=== PATIENT | female | born 1975 | race Caucasian/White ===

== ENCOUNTER 2016-09-10 14:13 | Emergency (ER) | payer OTHER ==
[~2016-09-10] VITALS: Ht 157.5 cm; Wt 83.2 kg
[~2016-09-10 14:13] MED LIST: ASCO500 PO; DSS100 PO; FERS325 PO; IBUP-2070 PO; PERCT PO; PREN-114 PO
[2016-09-10] MEDS ORDERED: DIME50TA23 PO (14:42)
[2016-09-10] MEDS ORDERED: DIAZEPAM 5 MG TABLET PO ONE (15:15)
[2016-09-10] MEDS ORDERED: ONDANSETRON HCL 4 MG/2 ML VIAL IVP ONE (15:30)
[2016-09-10 15:37] LABS: BASOPHILS % (AUTO) 0.3 % (0.0-2.0); EOSINOPHILS % (AUTO) 1.3 % (1.0-6.0); HEMATOCRIT 36.2 % (36-46); HEMOGLOBIN 11.6 g/dL (12.0-16.0); LYMPHOCYTES # (AUTO) 3.1 K/uL (1.0-4.8); LYMPHOCYTES % (AUTO) 26.4 % (22.0-44.0); MEAN CORPUSCULAR HGB CONC 32.1 G/dL (31.0-37.0); MEAN CORPUSCULAR VOLUME 84 fL (80-100); MONOCYTES # (AUTO) 0.7 K/uL (0.1-1.0); MONOCYTES % (AUTO) 6.3 % (2.0-9.0); NEUTROPHILS # (AUTO) 7.6 K/uL (1.8-7.7); NEUTROPHILS % (AUTO) 65.7 % (40.0-70.0); PLATELET COUNT (AUTO) 317 K/uL (150-450); RED CELL DISTRIBUTION WIDTH 14.6 % (11.5-14.5); WHITE BLOOD COUNT (AUTO) 11.6 K/uL (4.5-11.0)
[2016-09-10 15:44] LABS: ANION GAP 13 mmol/L (8-16); CARBON DIOXIDE 24 mmol/L (22-29); CHLORIDE 103 mmol/L (98-107); CREATININE 0.68 mg/dL (0.60-1.30); GLOMERULAR FILTR. RATE CALC > 60 mL/min (>60); POTASSIUM 4.1 mmol/L (3.5-5.1); SODIUM SERUM 140 mmol/L (136-145); UREA NITROGEN, BLOOD 14 mg/dL (7-18)
[2016-09-10 15:49] LABS: ALANINE AMINOTRANSFERASE 22 U/L (12-78); ALBUMIN 3.6 g/dL (3.4-5.0); ASPARTATE AMINOTRANSFERASE 17 U/L (15-37); BILIRUBIN,TOTAL 0.2 mg/dL (0.1-1.0); TOTAL PROTEIN, SERUM 8.3 g/dL (6.4-8.2)
[2016-09-10] MEDS ORDERED: SODIUM CHLORIDE 0.9% 1,000 ML IV ONE (16:15)
[2016-09-10 16:29] VITALS: BP 101/66
== END 2016-09-10 17:09 | disposition home or self-care (01) ==
LOC: EMS 14:18
DX: R42 Dizziness and giddiness (principal); H81.399 Other peripheral vertigo, unspecified ear
CPT/HCPCS: 36415; 80053; 85025; 96361; 96374; 99284; J2405

== ENCOUNTER 2016-10-03 08:38 | Emergency (ER) | payer OTHER ==
[~2016-10-03] VITALS: Ht 157.5 cm; Wt 84.1 kg
[~2016-10-03 08:38] MED LIST changes: +DIME50TA23 PO; -DSS100 PO; -FERS325 PO; -IBUP-2070 PO; -PERCT PO; -PREN-114 PO
[2016-10-03] MEDS ORDERED: ACETAMINOPHEN 325 MG TABLET PO ONE (09:00)
[2016-10-03 09:53] VITALS: BP 122/84
== END 2016-10-03 10:11 | disposition home or self-care (01) ==
LOC: EMS 08:39
DX: B34.9 Viral infection, unspecified (principal)
CPT/HCPCS: 99283

== ENCOUNTER 2017-04-23 02:55 | Emergency (ER) | payer OTHER ==
[~2017-04-23] VITALS: Ht 165.1 cm; Wt 75.0 kg
[2017-04-23] MEDS ORDERED: SODIUM CHLORIDE 0.9% 1,000 ML IV ONE (03:30)
[2017-04-23] MEDS ORDERED: RANITIDINE HCL 25 MG/ML 2 ML VIAL IVP ONE (03:30)
[2017-04-23] MEDS ORDERED: ONDANSETRON HCL 4 MG/2 ML VIAL IVP ONE ×2 (03:30→06:15)
[2017-04-23] MEDS ORDERED: HYDROmorphone 2 MG/ML SYRINGE IVP ONE ×2 (03:30→05:30)
[2017-04-23 03:48] LABS: BASOPHILS % (AUTO) 0.3 % (0.0-2.0); HEMATOCRIT 40.5 % (36-46); HEMOGLOBIN 13.5 g/dL (12.0-16.0); LYMPHOCYTES # (AUTO) 2.3 K/uL (1.0-4.8); LYMPHOCYTES % (AUTO) 12.8 % (22.0-44.0); MEAN CORPUSCULAR HGB CONC 33.4 G/dL (31.0-37.0); MEAN CORPUSCULAR VOLUME 87 fL (80-100); MONOCYTES # (AUTO) 0.7 K/uL (0.1-1.0); MONOCYTES % (AUTO) 3.8 % (2.0-9.0); NEUTROPHILS # (AUTO) 14.6 K/uL (1.8-7.7); NEUTROPHILS % (AUTO) 82.1 % (40.0-70.0); PLATELET COUNT (AUTO) 334 K/uL (150-450); RED BLOOD CELL COUNT(AUTO) 4.66 MIL/uL (4.00-5.20); RED CELL DISTRIBUTION WIDTH 13.4 % (11.5-14.5); WHITE BLOOD COUNT (AUTO) 17.8 K/uL (4.5-11.0)
[2017-04-23 03:59] LABS: ANION GAP 14 mmol/L (8-16); CALCIUM, TOTAL 10.1 mg/dL (8.8-10.5); CARBON DIOXIDE 23 mmol/L (22-29); CHLORIDE 97 mmol/L (98-107); CREATININE 0.93 mg/dL (0.60-1.30); GLOMERULAR FILTR. RATE CALC > 60 mL/min (>60); POTASSIUM 3.7 mmol/L (3.5-5.1); SODIUM SERUM 134 mmol/L (136-145); UREA NITROGEN, BLOOD 16 mg/dL (7-18)
[2017-04-23 04:05] LABS: ALANINE AMINOTRANSFERASE 22 U/L (12-78); ALBUMIN 4.2 g/dL (3.4-5.0); AMYLASE 85 U/L (25-115); ASPARTATE AMINOTRANSFERASE 16 U/L (15-37); BILIRUBIN,TOTAL 0.4 mg/dL (0.1-1.0); TOTAL PROTEIN, SERUM 8.9 g/dL (6.4-8.2)
[2017-04-23] MEDS ORDERED: PHENOBARB/HYOSCY/ATROPINE/SCOP 5 ML UDCUP ELIXIR PO ONE (05:30)
[2017-04-23] MEDS ORDERED: MAG HYDROX/AL HYDROX/SIMETH ES 30 ML SUSPENSION UDCUP PO ONE ×2 (05:30→06:15)
[2017-04-23] MEDS ORDERED: LIDOCAINE HCL 2% VISCOUS 15 ML SOLUTION UDCUP PO ONE (05:30)
[2017-04-23 06:16] VITALS: BP 122/70
== END 2017-04-23 06:30 | disposition home or self-care (01) ==
LOC: EMS 02:56
DX: K29.70 Gastritis, unspecified, without bleeding (principal)
CPT/HCPCS: 36415; 76700; 80053; 82150; 83690; 84703; 85025; 93005; 96361; 96374; 96375; 96376; 99285; J1170; J2405; J2780; J7030

== ENCOUNTER 2018-01-06 12:29 | Emergency (ER) | payer OTHER ==
[~2018-01-06] VITALS: Ht 154.9 cm; Wt 79.5 kg
[2018-01-06] MEDS ORDERED: IBUPROFEN 600 MG TABLET PO ONE (15:15)
[2018-01-06] MEDS ORDERED: GuaiFENesin/D-METHORPHAN [SUGAR-FREE] 200-20MG/10 ML SYRUP UDCUP PO ONE (15:15)
[2018-01-06 16:38] VITALS: BP 138/71
== END 2018-01-06 16:44 | disposition home or self-care (01) ==
LOC: EMS 12:30
DX: J06.9 Acute upper respiratory infection, unspecified (principal); M79.1 Myalgia; Z98.51 Tubal ligation status
CPT/HCPCS: 99284

== ENCOUNTER 2018-10-22 07:26 | Day surgery (SDC) | payer OTHER ==
[~2018-10-22] VITALS: Ht 162.6 cm; Wt 83.2 kg
[~2018-10-22 07:26] MED LIST changes: -ASCO500 PO; +CeFAZolin 2 GM/DEXTROSE 50 ML IV ONE; -DIME50TA23 PO; +RINGERS SOLUTION,LACTATED 1,000 ML IV ONE
[2018-10-22] MEDS ORDERED: LIDOCAINE/PF 2% 5 ML VIAL IM ONE (07:27)
[2018-10-22] MEDS ORDERED: PROPOFOL 1% 20 ML VIAL IVP ONE (07:27)
[2018-10-22] MEDS ORDERED: KETAMINE HCL 50 MG/ML 10 ML VIAL IVP ONE (07:27)
[2018-10-22] MEDS ORDERED: ROCURONIUM BROMIDE 10 MG/ML 5 ML VIAL IVP ONE (07:27)
[2018-10-22] MEDS ORDERED: MIDAZOLAM HCL 2 MG/2 ML VIAL IVP ONE (07:27)
[2018-10-22] MEDS ORDERED: DEXAMETHASONE SOD PHOS 4 MG/ML VIAL IVP ONE (07:27)
[2018-10-22] MEDS ORDERED: KETOROLAC TROMETHAMINE 60 MG/2 ML VIAL IM ONE (07:27)
[2018-10-22] MEDS ORDERED: ONDANSETRON HCL 4 MG/2 ML VIAL IVP ONE (07:27)
[2018-10-22] MEDS ORDERED: CeFAZolin 2 GM/DEXTROSE 50 ML IV ONE (08:00)
[2018-10-22] MEDS ORDERED: MetroNIDAZOLE 500 MG/NACL 100 ML IV ONE ×2 (08:00→09:44)
[2018-10-22] MEDS: RINGERS SOLUTION,LACTATED 1,000 ML IV ONE (08:15)
[2018-10-22] MEDS ORDERED: IOHEXOL 240 MG/ML 20 ML VIAL ONE (08:29)
[2018-10-22] MEDS ORDERED: SODIUM CHLORIDE 0.9% 0 ML IV ONE (08:30)
[2018-10-22] MEDS ORDERED: BUPIVACAINE HCL 0.5% 50 ML VIAL ONE (08:30)
[2018-10-22] MEDS: LIDOCAINE 2%/EPI 1:200,000/PF 20 ML VIAL ONE (09:51)
[2018-10-22] MEDS: BUPIVACAINE HCL/PF 0.5% 30 ML VIAL ONE (09:51)
[2018-10-22] MEDS ORDERED: SUGAMMADEX SODIUM 200 MG/2 ML VIAL IVP ONE (09:57)
[2018-10-22] MEDS ORDERED: FentaNYL CITRATE-PF 100 MCG/2 ML VIAL IVP PRN (10:15)
[2018-10-22] MEDS ORDERED: OxyCODONE HCL/ACETAMINOPHEN 10-325 MG TABLET PO PRN (10:15)
[2018-10-22] MEDS ORDERED: HYDROmorphone 2 MG/ML SYRINGE IVP PRN (10:15)
[2018-10-22] MEDS ORDERED: MEPERIDINE-PF 25 MG/ML VIAL IVP PRN (10:15)
[2018-10-22] MEDS ORDERED: RINGERS SOLUTION,LACTATED 1,000 ML IV ONE (10:29)
[2018-10-22] MEDS ORDERED: IBUPROFEN 800 MG TABLET PO PRN (10:30)
[2018-10-22] MEDS ORDERED: ACETAMINOPHEN 500 MG TABLET PO PRN (10:30)
[2018-10-22] MEDS ORDERED: HYDROmorphone 2 MG/ML SYRINGE ONE (11:33)
[2018-10-22] MEDS: HYDROmorphone 2 MG/ML SYRINGE IVP PRN (11:35)
[2018-10-22] MEDS ORDERED: ACETAMINOPHEN 500 MG TABLET PO SCH (18:00)
[2018-10-22] MEDS ORDERED: KETOROLAC TROMETHAMINE 30 MG/ML VIAL IVP SCH (18:00)
== END 2018-10-22 13:35 | disposition home or self-care (01) ==
LOC: SURGERY 07:26
PROVIDERS: ATTEND Surgery
DX: K80.10 Calculus of gallbladder with chronic cholecystitis without obstruction (principal); G47.33 Obstructive sleep apnea (adult) (pediatric); E66.8 Other obesity; Z68.34 Body mass index [BMI] 34.0-34.9, adult; Z98.890 Other specified postprocedural states; Z82.49 Family history of ischemic heart disease and other diseases of the circulatory system; Z98.84 Bariatric surgery status
CPT/HCPCS: 88304; J0690; J1100; J1170; J1885; J2250; J2405; J2704; J3490; J7030; J7120; Q9966

== ENCOUNTER 2020-06-22 14:39 | Emergency (ER) | payer OTHER ==
[~2020-06-22] VITALS: Ht 154.9 cm; Wt 86.4 kg
[2020-06-22] MEDS ORDERED: ASCO500 PO (14:45)
[2020-06-22] MEDS ORDERED: ACET-2247 PO (14:45)
[2020-06-22] MEDS ORDERED: GuaiFENesin [SUGAR-FREE] 200 MG/10 ML SOLUTION UDCUP PO ONE (15:45)
[2020-06-22 16:39] LABS: BASOPHILS % (AUTO) 0.4 % (0.0-2.0); EOSINOPHILS % (AUTO) 0.2 % (1.0-6.0); HEMATOCRIT 37.4 % (36-46); HEMOGLOBIN 12.4 g/dL (12.0-16.0); LYMPHOCYTES # (AUTO) 1.9 K/uL (1.0-4.8); LYMPHOCYTES % (AUTO) 32.8 % (22.0-44.0); MEAN CORPUSCULAR HGB CONC 33.3 G/dL (31.0-37.0); MEAN CORPUSCULAR VOLUME 87 fL (80-100); MONOCYTES # (AUTO) 0.5 K/uL (0.1-1.0); NEUTROPHILS # (AUTO) 3.3 K/uL (1.8-7.7); NEUTROPHILS % (AUTO) 57.6 % (40.0-70.0); PLATELET COUNT (AUTO) 236 K/uL (150-450); RED BLOOD CELL COUNT(AUTO) 4.29 MIL/uL (4.00-5.20); RED CELL DISTRIBUTION WIDTH 13.8 % (11.5-14.5)
[2020-06-22 16:52] LABS: ANION GAP 11 mmol/L (8-16); CALCIUM, TOTAL 8.5 mg/dL (8.8-10.5); CARBON DIOXIDE 27 mmol/L (22-29); CHLORIDE 105 mmol/L (98-107); GLOMERULAR FILTR. RATE CALC > 60 mL/min (>60); GLUCOSE,RANDOM 100 mg/dL (70-110); POTASSIUM 3.8 mmol/L (3.5-5.1); SODIUM SERUM 143 mmol/L (136-145); UREA NITROGEN, BLOOD 10 mg/dL (7-18)
[2020-06-22 16:58] LABS: ALANINE AMINOTRANSFERASE 34 U/L (12-78); ALBUMIN 3.7 g/dL (3.4-5.0); ALKALINE PHOSPHATASE 93 U/L (46-116); ASPARTATE AMINOTRANSFERASE 44 U/L (15-37); BILIRUBIN,TOTAL 0.2 mg/dL (0.1-1.0); TOTAL PROTEIN, SERUM 8.5 g/dL (6.4-8.2)
[2020-06-22] MEDS ORDERED: SODIUM CHLORIDE 0.9% 100 ML ONE (17:29)
[2020-06-22] MEDS ORDERED: IOVERSOL 350 MG/ML 100 ML VIAL ONE (17:29)
[2020-06-22 18:58] VITALS: BP 126/88
== END 2020-06-22 19:13 | disposition home or self-care (01) ==
LOC: EMS 14:39
DX: U07.1 COVID-19 (principal); J12.82 Pneumonia due to coronavirus disease 2019; Z79.899 Other long term (current) drug therapy
CPT/HCPCS: 36415; 70450; 71045; 71275; 80053; 84484; 84703; 85025; 85379; 93005; 99285; J7050; Q9967

== ENCOUNTER 2020-10-18 14:09 | Emergency (ER) | payer OTHER ==
[~2020-10-18] VITALS: Ht 154.9 cm; Wt 86.4 kg
[~2020-10-18 14:09] MED LIST changes: +ACET-2247 PO; +ASCO500 PO; -CeFAZolin 2 GM/DEXTROSE 50 ML IV ONE; -RINGERS SOLUTION,LACTATED 1,000 ML IV ONE
[2020-10-18] MEDS ORDERED: CYCLOBENZAPRINE HCL 10 MG TABLET PO ONE (15:00)
[2020-10-18] MEDS ORDERED: KETOROLAC TROMETHAMINE 60 MG/2 ML VIAL IM ONE (15:00)
[2020-10-18 16:04] VITALS: BP 109/76
== END 2020-10-18 16:20 | disposition home or self-care (01) ==
LOC: EMS 14:14
DX: S30.0XXA Contusion of lower back and pelvis, initial encounter (principal); W10.8XXA Fall (on) (from) other stairs and steps, initial encounter; Y93.89 Activity, other specified; Y92.89 Other specified places as the place of occurrence of the external cause; Y99.8 Other external cause status
CPT/HCPCS: 72110; 96372; 99283; J1885

== ENCOUNTER 2024-02-17 16:37 | Emergency (ER) | payer OTHER ==
[~2024-02-17] VITALS: Ht 157.5 cm; Wt 84.5 kg
[2024-02-17 16:52] VITALS: TEMP 98.3
[2024-02-17 17:55] LABS: BASOPHILS % (AUTO) 0.5 % (0.0-2.0); EOSINOPHILS % (AUTO) 1.1 % (1.0-6.0); HEMATOCRIT 37.1 % (36-46); HEMOGLOBIN 12.2 g/dL (12.0-16.0); LYMPHOCYTES # (AUTO) 2.7 K/uL (1.0-4.8); LYMPHOCYTES % (AUTO) 28.9 % (22.0-44.0); MEAN CORPUSCULAR HEMOGLOBIN 29.4 pg (26.0-34.0); MEAN CORPUSCULAR HGB CONC 32.8 G/dL (31.0-37.0); MEAN CORPUSCULAR VOLUME 90 fL (80-100); MONOCYTES # (AUTO) 0.6 K/uL (0.1-1.0); MONOCYTES % (AUTO) 6.9 % (2.0-9.0); NEUTROPHILS # (AUTO) 5.9 K/uL (1.8-7.7); NEUTROPHILS % (AUTO) 62.6 % (40.0-70.0); PLATELET COUNT (AUTO) 288 K/uL (150-450); RED BLOOD CELL COUNT(AUTO) 4.14 MIL/uL (4.00-5.20); RED CELL DISTRIBUTION WIDTH 13.3 % (11.5-14.5); WHITE BLOOD COUNT (AUTO) 9.4 K/uL (4.5-11.0)
[2024-02-17 18:09] LABS: ANION GAP 10 mmol/L (8-16); CALCIUM, TOTAL 9.2 mg/dL (8.8-10.5); CARBON DIOXIDE 28 mmol/L (22-29); CHLORIDE 103 mmol/L (98-107); CREATININE 0.91 mg/dL (0.60-1.30); GLOMERULAR FILTR. RATE CALC > 60 mL/min (>60); GLUCOSE,RANDOM 101 mg/dL (70-110); LIPASE 53 U/L (16-77); POTASSIUM 3.9 mmol/L (3.5-5.1); SODIUM SERUM 141 mmol/L (136-145); UREA NITROGEN, BLOOD 10 mg/dL (7-18)
[2024-02-17 18:20] LABS: TROPONIN I-HIGH SENSITIVITY Less Than 4 ng/L (<51)
[2024-02-17 21:30] VITALS: BP 129/77; PULSE 80; RESP 14; O2SAT 96
[2024-02-17] MEDS: HYDROmorphone HCL 2 MG/ML SYRINGE IM ONE (21:39)
[2024-02-17] MEDS: ONDANSETRON HCL 4 MG/2 ML VIAL IM ONE (21:40)
[2024-02-17 22:18] LABS: APPEARANCE,URINE CLEAR (CLEAR); BILIRUBIN,URINE NEGATIVE (NEGATIVE); COLOR,URINE LIGHT YELLOW (YELLOW); GLUCOSE, URINE (UA) NEGATIVE (NEGATIVE); KETONES,URINE NEGATIVE (NEGATIVE); LEUKOCYTE ESTERASE ,URINE NEGATIVE (NEGATIVE); NITRATE,URINE NEGATIVE (NEGATIVE); OCCULT BLOOD,URINE LARGE (NEGATIVE); PROTEIN,URINE NEGATIVE (NEGATIVE); SPECIFIC GRAVITIY, URINE 1.018 (1.003-1.030); UROBILINOGEN,URINE <=1.0 mg/dL (<=1.0)
[2024-02-17 22:45] LABS: BACTERIA,URINE Many /HPF (None Seen); SQUAMOUS EPITHELIAL CELL,UR Few /LPF (None Seen); WBC,URINE 0-2 /HPF (0-5)
[2024-02-17] MEDS: SODIUM CHLORIDE 0.9% 1,000 ML IV ONE (23:35)
[2024-02-17] MEDS: MECLIZINE HCL 25 MG TABLET PO ONE (23:35)
[2024-02-18] MEDS: METOCLOPRAMIDE HCL 5 MG/ML 2 ML VIAL IVP ONE (01:37)
== END 2024-02-18 01:56 | disposition home or self-care (01) ==
LOC: EMS 16:43
DX: R07.89 Other chest pain (principal); R10.84 Generalized abdominal pain; R42 Dizziness and giddiness; Z90.49 Acquired absence of other specified parts of digestive tract; Z98.51 Tubal ligation status; Z98.890 Other specified postprocedural states
CPT/HCPCS: 99285; 74176; 96360; 80048; 81001; 83690; 84484; 84703; 85025; 87077; 87086; 36415; 93005; 96372; J1171; J2405; J7030; J2765; 87186